=== PATIENT | female | born 1995 | race African-American/Black ===

== ENCOUNTER 2017-10-05 12:11 | Emergency (ER) | payer MEDICAID ==
[~2017-10-05] VITALS: Ht 172.7 cm; Wt 140.2 kg
[2017-10-05 12:21] VITALS: BP 148/95; Ht 172.7 cm; Wt 140.2 kg
== END 2017-10-05 13:45 | disposition home or self-care (01) ==
LOC: ED 12:11
DX: S29.012A Strain of muscle and tendon of back wall of thorax, initial encounter (principal); S16.1XXA Strain of muscle, fascia and tendon at neck level, initial encounter; V89.2XXA Person injured in unspecified motor-vehicle accident, traffic, initial encounter; Y93.89 Activity, other specified; Y92.89 Other specified places as the place of occurrence of the external cause; Y99.8 Other external cause status
CPT/HCPCS: J1885